=== PATIENT | female | born 1950 | race Caucasian/White ===

== ENCOUNTER 2018-01-23 02:08 | Emergency (ER) | payer MEDICARE ==
[2018-01-23 03:09] LABS: ADD MAN DIFF? NO
[2018-01-23 03:12] LABS: BASO % 0 % (0-3); EOS % 0 % (0-3); HEMATOCRIT 41.2 % (36.0-47.0); HEMOGLOBIN 13.8 g/dL (12.0-15.5); LYMPH # 1.8 x10^3/uL (1.0-4.8); LYMPH % 21 % (24-48); MEAN CORPUSCULAR HEMOGLOBIN 31 pg (25-35); MEAN CORPUSCULAR HGB CONC 34 g/dL (31-37); MEAN CORPUSCULAR VOLUME 93 fL (79-100); MONO # 0.8 x10^3/uL (0.0-1.1); MONO % 9 % (0-9); NEUT % 69 % (31-73); PLATELET COUNT 304 x10^3/uL (140-400); RED BLOOD COUNT 4.45 x10^6/uL (3.50-5.40); RED CELL DISTRIBUTION WIDTH 13.3 % (11.5-14.5); WHITE BLOOD COUNT 8.7 x10^3/uL (4.0-11.0)
[2018-01-23 03:27] LABS: ANION GAP 7 (6-14); BLOOD UREA NITROGEN 13 mg/dL (7-20); CALCIUM 9.1 mg/dL (8.5-10.1); CARBON DIOXIDE 27 mmol/L (21-32); CHLORIDE 102 mmol/L (98-107); CREATININE 0.9 mg/dL (0.6-1.0); GFR 62.6; GLUCOSE 101 mg/dL (70-99); POTASSIUM 3.8 mmol/L (3.5-5.1); SODIUM 136 mmol/L (136-145)
== END 2018-01-23 04:11 | disposition home or self-care (01) ==
LOC: ER 02:08
DX: S61.431A Puncture wound without foreign body of right hand, initial encounter (principal); L03.113 Cellulitis of right upper limb; I10 Essential (primary) hypertension; Z88.2 Allergy status to sulfonamides; Z88.6 Allergy status to analgesic agent; W61.91XA Bitten by other birds, initial encounter; Y93.89 Activity, other specified; Y92.89 Other specified places as the place of occurrence of the external cause; Y99.8 Other external cause status
CPT/HCPCS: 36415; 80048; 85025; 96365; 99284-25; J0690

== ENCOUNTER 2020-01-14 16:44 | Emergency (ER) | payer MEDICARE ==
[~2020-01-14] VITALS: Ht 165.1 cm; Wt 77.0 kg
[~2020-01-14 16:44] MED LIST: CEPH500C PO
[2020-01-14 18:49] VITALS: BP 130/70
[2020-01-14] MEDS: HYDROcodone/APAP 5/325MG 1 TAB TABLET PO ONE (19:00)
--- NOTE | 2020-01-14 19:06 | PHYS DOC ---
Past Medical History Past Medical History: Hypertension Additional Past Medical Histor: ROSACEA Past Surgical History: No Surgical History Smoking Status: Never Smoker Alcohol Use: Rarely Drug Use: None Adult General Chief Complaint Chief Complaint: HAND PROBLEM [facility] HPI Patient is a 69 year old female who presents after her rooster punctured her skin with his rooster spurs. The patient states that her left hand started swelling since this event. She's been feeling hot and cold. It's her pain as 8 out of 10 in severity and sharp. The pain is located in the left hand where she has 2 puncture wounds. Complete ROS were reviewed and found to be within normal limits, except as documented in the HPI Review of Systems Review of Systems Constitutional: Denies fever or chills [] Eyes: Denies change in visual acuity, redness, or eye pain [] HENT: Denies nasal congestion or sore throat [] Respiratory: Denies cough or shortness of breath [] Cardiovascular: No additional information not addressed in HPI [] GI: Denies abdominal pain, nausea, vomiting, bloody stools or diarrhea [] : Denies dysuria or hematuria [] Musculoskeletal: Denies back pain or joint pain [] Integument: Denies rash or skin lesions [] Neurologic: Denies headache, focal weakness or sensory changes [] Endocrine: Denies polyuria or polydipsia [] All other systems were reviewed and found to be within normal limits, except as documented in this note. Current Medications Current Medications Current Medications Medications (Trade) Dose Ordered Sig/[place]rence Start Time Stop Time Status Last Admin Dose Admin Acetaminophen/ Hydrocodone Bitart (Lortab 5/325) 1 tab 1X ONCE 01/14/20 19:00 01/14/20 19:01 DC 01/14/20 19:00 1 TAB Diphtheria/ Tetanus/Acell Pertussis (ADACEL TDap SYRINGE) 0.5 ml ONCE ONCE 01/14/20 20:15 01/14/20 20:16 DC Allergies Allergies Allergies Coded Allergies Type Severity Reaction Last Updated Verified Sulfa (Sulfonamide Antibiotics) Allergy Intermediate 01/14/20 Yes naproxen Allergy Intermediate 01/14/20 Yes Physical Exam Physical Exam Constitutional: Well developed, well nourished, no acute distress, non-toxic appearance. [] HENT: Normocephalic, atraumatic, bilateral external ears normal, oropharynx moist, no oral exudates, nose normal. [] Extremities: Tenderness to anterior left hand. Two small punctures wound, and moderate edema to hand. Neurologic: Alert and oriented X 3, normal motor function, normal sensory function, no focal deficits noted. [] Psychologic: Affect normal, judgement normal, mood normal. [] Current Patient Data Vital Signs Vital Signs Date Time Temp Pulse Resp B/P (MAP) Pulse Ox O2 Delivery O2 Flow Rate FiO2 01/14/20 19:00 Room Air 01/14/20 18:49 97.9 87 16 130/70 (90) 98 97.9 EKG EKG [] Radiology/Procedures Radiology/Procedures [] Course & Med Decision Making Course & Med Decision Making Pertinent Labs and Imaging studies reviewed. (See chart for details) Will get x-ray and then place on Clindamycin and Cipro. X-ray is unremarkable. Dragon Disclaimer Dragon Disclaimer This electronic medical record was generated, in whole or in part, using a voice recognition dictation system. Departure Departure Impression: Primary Impression: Puncture wound Disposition: HOME, SELF-CARE Condition: STABLE Referrals: Kacie Plasencia [employer] LEADER (PCP) Patient Instructions: Cellulitis Additional Instructions: Thank you for visiting [facility]. We appreciate you trusting us with your care. If any additional problems come up don't hesitate to return to visit us. Please follow up with your primary care provider so they can plan additional care if needed and know about the problem that you had. If symptoms worsen come back to the Emergency Department. Any concerning symptoms that start such as chest pain, shortness of air, weakness or numbness on one side of the body, running high fevers or any other concerning symptoms return to the ER. You have been prescribed an antibiotic today to help fight your infection. Ple ase take all of the antibiotic as directed. If after 48 hours the infection is not improving, please return for more care. If the infection worsens, return to ER for additional care. Scripts Ondansetron (ONDANSETRON ODT) 4 Mg Tab.rapdis 1 TAB PO PRN Q6-8HRS PRN for NAUSEA, #20 TAB Prov: KARLI DODD APRN 01/14/20 Clindamycin Hcl (CLINDAMYCIN HCL) 150 Mg Capsule 450 MG PO TID for 7 Days, #63 CAP Prov: KARLI DODD APRN 01/14/20 Ciprofloxacin Hcl (CIPROFLOXACIN HCL) 500 Mg Tablet 1 TAB PO BID for 7 Days, #14 TAB Prov: KARLI DODD APRN 01/14/20 KARLI DODD APRN Jan 14, 2020 19:06
[2020-01-14] MEDS: DIPH,PERTUSS(ACELL),TET VAC/PF 0.5 ML SYRINGE. VAX IM ONE (20:15)
[2020-01-14] MEDS ORDERED: CLIN150C14 PO (20:17)
[2020-01-14] MEDS ORDERED: CIPR500T PO (20:17)
--- NOTE | 2020-01-14 20:21 | RAD ---
Three-view left hand radiographs 01/14/2020 CLINICAL HISTORY: Rooster trauma to the left hand. PA, lateral and oblique digital radiographs of the left hand were obtained. No fracture or dislocation left hand is seen. No radiopaque foreign body is noted. Moderate to severe degenerative changes are seen throughout the interphalangeal joints of the left hand. Mild to moderate degenerative changes are seen involving the MCP joints along the first carpal metacarpal joint of the left hand. IMPRESSION: Degenerative changes are seen involving the left hand as discussed above. No fracture or dislocation is seen. Electronically signed by: Pa Mesa MD (01/14/2020 8:18 PM) [id number]
[2020-01-14] MEDS ORDERED: ONDA4TAB12 PO (20:24)
== END 2020-01-14 20:25 | disposition home or self-care (01) ==
LOC: ER 16:44
DX: S61.432A Puncture wound without foreign body of left hand, initial encounter (principal); I10 Essential (primary) hypertension; W61.32XA Struck by chicken, initial encounter; Y93.89 Activity, other specified; Y92.89 Other specified places as the place of occurrence of the external cause; Y99.8 Other external cause status
CPT/HCPCS: 73130; 90471; 90715; 99283